=== PATIENT | female | born 1985 | race American Indian/Alaskan Native ===

== ENCOUNTER 2020-02-10 14:58 | Observation (INO) | payer SELFPAY ==
[2020-02-10] MEDS ORDERED: Sodium Chloride 0.9% 2.5 ML Syringe FLUSH PRN (15:08)
[2020-02-10] MEDS ORDERED: Acetaminophen 500 MG Tab PO ONE (15:08)
[2020-02-10] MEDS ORDERED: Morphine 4 MG/ML Syringe IVPUSH ONE (15:08)
[2020-02-10] MEDS ORDERED: Sodium Chloride 0.9% 10 ML Syringe FLUSH PRN (15:08)
[2020-02-10] MEDS ORDERED: Sodium Chloride 0.9% 1,000 ML IV ONE (15:08)
[2020-02-10] MEDS ORDERED: Ketorolac 15 MG/ML SDV IVPUSH ONE (15:08)
--- NOTE | 2020-02-10 16:05 | EDM.PDOC ---
ED HPI GENERAL MEDICAL PROBLEM - General Chief Complaint: GRINDER OPERATOR TOOL Problem Stated Complaint: OB PROBLEM Time Seen by Provider: 02/10/20 14:59 - History of Present Illness INITIAL COMMENTS - FREE TEXT/NARRATIVE: History of present illness: 34-year-old female brought by EMS from [facility] ER in [facility] for ongoing vaginal bleeding. On January 29 she started medication for a chemical termination of at 8 weeks. She took a second dose the next day. She reports some mild bleeding since then, however today she developed very heavy bleeding and abdominal cramping as well as passage of clots. She also felt nauseated. No fevers. Pain located in the lower abdomen and low back. Review of systems: As per history of present illness and below otherwise all systems reviewed and negative. Past medical history: As per history of present illness and as reviewed below otherwise noncontributory. Surgical history: As per history of present illness and as reviewed below otherwise noncontributory. D&C and Social history: No reported history of drug or alcohol abuse. Family history: As per history of present illness and as reviewed below otherwise noncontributory. Physical exam: GEN: no acute distress, well appearing HEENT: Atraumatic, normocephalic, mucous membranes moist, Neck: supple, nontender, trachea midline. Lungs: No respiratory distress. Heart: RRR Abdomen: Soft, nondistended, lower abdominal tenderness. : Pelvic exam performed with KAYLYN Gerard form designer, as difficult to visualize due to patient's level of pain, however also appears closed. There is active bleeding going on. No lesions seen. No products of conception visible. Back: nontender Extremities: Atraumatic. Neurovascularly intact. Neuro: Awake, alert, oriented. Neuro Exam nonfocal. Skin: warm, dry, no lesions Diagnostics: Ultrasound: Products of conception retained. Therapeutics: [] MDM: Possible retained POC/incomplete . Vital signs stable here. Patient reports still in pain. Pain medications given. We will also give IV fluids. Impression: [] Plan: We will check labs and ultrasound, and consult PLANT MAINTENANCE SUPERVISOR. Definitive disposition and diagnosis as appropriate pending reevaluation and review of above. Ultrasound does confirm that gestation is still present in the uterus. Cervical os appears closed. Discussed with GRINDER OPERATOR TOOL, who will possibly need D&C. Back Pain Score (Numeric/FACES): 7 - Related Data Allergies Allergy/AdvReac Type Severity Reaction Status Date / Time No Known Allergies Allergy Verified 02/10/20 15:13 Home Meds: Home Meds . [Unable to Verify Home Med List] 02/10/20 [History] Past Medical History - Past Health History Medical/Surgical History: Denies Medical/Surgical History - Infectious Disease History Infectious Disease History: Reports: None - Past Surgical History Female Surgical History: Reports: Section Social & Family History - Family History Family Medical History: Noncontributory - Tobacco Use Smoking Status *Q: Unknown Ever Smoked - Caffeine Use Caffeine Use: Reports: None - Recreational Drug Use Recreational Drug Use: No ED ROS GENERAL - Review of Systems Review Of Systems: See Below (See dictation) ED EXAM - Physical Exam Exam: See Below (See dictation) Course - Vital Signs Last Recorded V/S: Last Vital Signs Temp 97.8 F 02/10/20 15:14 Pulse 75 02/10/20 15:14 Resp 17 02/10/20 15:14 BP 140/86 02/10/20 15:14 Pulse Ox 97 02/10/20 15:14 - Orders/Labs/Meds Orders: Active Orders 24 hr Category Date Time Status Saline Lock Insert [OM.PC] Stat Oth 02/10/20 15:08 Ordered Medication Orders Lactated Ringer's (Ringers, Lactated) 1,000 mls @ 125 mls/hr IV ASDIRECTED NORY Oxycodone/Acetaminophen (Percocet 325-5 Mg) 2 tab PO Q4H PRN PRN Reason: Pain (severe 7-10) Labs: Laboratory Tests 02/10/20 02/10/20 02/10/20 Range/Units 15:20 15:20 15:20 WBC 12.34 H (4.0-11.0) K/uL RBC 3.84 L (4.30-5.90) M/uL Hgb 9.9 L (12.0-16.0) g/dL Hct 31.7 L (36.0-46.0) % MCV 82.6 (80.0-98.0) fL MCH 25.8 L (27.0-32.0) pg MCHC 31.2 (31.0-37.0) g/dL RDW Std Deviation 49.1 (28.0-62.0) fl RDW Coeff of Joe 16 H (11.0-15.0) % Plt Count 371 (150-400) K/uL MPV 8.90 (7.40-12.00) fL Neut % (Auto) 71.5 (48.0-80.0) % Lymph % (Auto) 21.8 (16.0-40.0) % [place] % (Auto) 5.3 (0.0-15.0) % Eos % (Auto) 1.2 (0.0-7.0) % Baso % (Auto) 0.2 (0.0-1.5) % Neut # (Auto) 8.8 H (1.4-5.7) K/uL Lymph # (Auto) 2.7 H (0.6-2.4) K/uL [place] # (Auto) 0.7 (0.0-0.8) K/uL Eos # (Auto) 0.2 (0.0-0.7) K/uL Baso # (Auto) 0.0 (0.0-0.1) K/uL Nucleated RBC % 0.0 /100WBC Nucleated RBCs # 0 K/uL Sodium 141 (136-145) mmol/L Potassium 3.5 (3.5-5.1) mmol/L Chloride 104 (98-107) mmol/L Carbon Dioxide 30.3 (21.0-32.0) mmol/L BUN 9 (7.0-18.0) mg/dL Creatinine 0.7 (0.6-1.0) mg/dL Est Cr Clr Drug Dosing 108.01 mL/min Estimated GFR (MDRD) > 60.0 ml/min Glucose 89 (74-106) mg/dL Calcium 8.3 L (8.5-10.1) mg/dL HCG, Quant 79454.0 mIU/mL Blood Type O POSITIVE Meds: Medications Generic Name Dose Route Start Last Admin Trade Name Freq PRN Reason Stop Dose Admin Lactated Ringer's 1,000 mls @ 125 mls/hr 02/10/20 18:30 Ringers, Lactated IV ASDIRECTED NORY Oxycodone/Acetaminophen 2 tab 02/10/20 18:31 Percocet 325-5 Mg PO Q4H PRN Pain (severe 7-10) Discontinued Medications Generic Name Dose Route Start Last Admin Trade Name Freq PRN Reason Stop Dose Admin Acetaminophen 1,000 mg 02/10/20 15:08 02/10/20 15:25 Tylenol Extra Strength PO 02/10/20 15:09 1,000 mg ONETIME ONE Administration Hydromorphone HCl 1 mg 02/10/20 17:39 02/10/20 17:50 Dilaudid IVPUSH 02/10/20 17:40 1 mg ONETIME ONE Administration Sodium Chloride 1,000 mls @ 999 mls/hr 02/10/20 15:08 02/10/20 15:22 Normal Saline IV 02/10/20 16:08 999 mls/hr .Bolus ONE Administration Ketorolac Tromethamine 15 mg 02/10/20 15:08 02/10/20 15:25 Toradol IVPUSH 02/10/20 15:09 15 mg ONETIME ONE Administration Morphine Sulfate 4 mg 02/10/20 15:08 02/10/20 15:24 Morphine IVPUSH 02/10/20 15:09 4 mg ONETIME ONE Administration Sodium Chloride 10 ml 02/10/20 15:08 02/10/20 15:25 Saline Flush FLUSH 10 ml ASDIRECTED PRN Administration Keep Vein Open Sodium Chloride 2.5 ml 02/10/20 15:08 02/10/20 15:25 Saline Flush FLUSH 2.5 ml ASDIRECTED PRN Administration Keep Vein Open - Re-Assessments/Exams Free Text/Narrative Re-Assessment/Exam: 02/10/20 17:31 Is feeling better. She reports her pain is somewhat improved. Pelvic exam was performed, which shows ongoing bleeding. Ultrasound complete, which shows retained products of conception. Will discuss with GRINDER OPERATOR TOOL. 02/10/20 18:05 Dr. Doe at bedside. He attempted to evaluate cervix for products, however patient was unable to tolerate. Therefore he will take the patient to the OR in the morning for D&E as bleeding seems to have improved at this point. He would like the patient to stay in observation. 02/10/20 18:48 Patient requested to speak to us. She now reports that her cousin who was initially watching her children is not able to watch her children tonight. Therefore she has no one to watch her kids tonight. She is requesting to leave. She was also concerned that she will not have a ride tomorrow to bring her home after the surgery. Did call Dr Doe to if that D&E could be performed tonight as the patient may not have a ride to get safely home tomorrow. However he is unable to perform the procedure tonight. This was discussed with the patient. Patient requested to sign out AMA as she reports she must leave tonight to care for her children as she has no one to watch over them tonight. She does agree to return tomorrow for the surgery and to remain n.p.o. after midnight. She has been able to arrange a ride back here and then home tomorrow for after the surgery as well. Dr. Doe was updated that the patient is signing out AMA and will return tomorrow for surgery. Departure - Departure Time of Disposition: 18:07 Disposition: Against Medical Advice 07 Clinical Impression: Retained products of conception following , Incomplete - Discharge Information Sepsis Event Note (ED) - Evaluation Sepsis Screening Result: No Definite Risk - Focused Exam Vital Signs: Vital Signs Temp Pulse Resp BP Pulse Ox 02/10/20 15:14 97.8 F 75 17 140/86 97 - My Orders Last 24 Hours: My Active Orders 02/10/20 15:08 Saline Lock Insert [OM.PC] Stat - Assessment/Plan Last 24 Hours: My Active Orders 02/10/20 15:08 Saline Lock Insert [OM.PC] Stat
--- NOTE | 2020-02-10 16:05 | US ---
Pelvic ultrasound: Multiple real-time images were obtained transabdominally and transvaginally. Comparison: No previous studies available. Gestational sac appears to be present. Small amount of debris is noted within this gestational sac. Small subchorionic hemorrhage is seen. Ovaries appear within normal limits. No free fluid is seen. Impression: 1. Findings compatible with products of conception as noted above. Diagnostic code #3 Study was dictated in MDT
[2020-02-10 16:08] LABS: BLOOD UREA NITROGEN,BUN 9 mg/dL (7.0-18.0); CARBON DIOXIDE,CO2 30.3 mmol/L (21.0-32.0); CHLORIDE,CL 104 mmol/L (98-107); GLUCOSE RANDOM 89 mg/dL (74-106); POTASSIUM,K 3.5 mmol/L (3.5-5.1); SODIUM,NA 141 mmol/L (136-145)
[2020-02-10] MEDS ORDERED: HYDROmorphone 1 MG/ML Syringe IVPUSH ONE (17:39)
[2020-02-10] MEDS ORDERED: Lactated Ringers 1,000 ML IV SCH (18:30)
[2020-02-10] MEDS ORDERED: Acetaminophen/oxyCODONE 325-5 MG Tab PO PRN (18:31)
[2020-02-10] MEDS ORDERED: fentaNYL 100 MCG/2 ML SDV ONE ×2 (20:08→21:14)
[2020-02-10] MEDS ORDERED: Midazolam 1 MG/ML 2 ML SDV ONE (20:08)
[2020-02-10] MEDS ORDERED: Ondansetron 4 MG/2 ML SDV ONE (21:03)
[2020-02-10] MEDS ORDERED: Ketorolac 30 MG/ML SDV ONE (21:17)
--- NOTE | 2020-02-10 21:24 | PCM.OPNOTE ---
- General Post-Op/Procedure Note Date of Surgery/Procedure: 02/10/20 Operative Procedure(s): D&E Post-Op Diagnosis: Same Anesthesia Technique: Spinal Primary Surgeon: Joe Doe EBL in mLs: 100 Complications: None Condition: Stable
--- NOTE | 2020-02-10 21:24 | PCM.DCSUM1 ---
Discharge Summary - Hospital Course Diagnosis: Stroke: No - Discharge Data Discharge Date: 02/10/20 Discharge Disposition: Home, Self-Care 01 Condition: Stable - Referral to Home Health Primary Care Physician: PCP None - Patient Summary/Data Operative Procedure(s) Performed: D&E - Patient Instructions Diet: Usual Diet as Tolerated Activity: As Tolerated Driving: Do Not Drive Showering/Bathing: May Shower - Discharge Plan Home Medications: Home Meds . [Unable to Verify Home Med List] 02/10/20 [History] Forms: ED Department Discharge Referrals: PCP,None [Primary Care Provider] - - Discharge Summary/Plan Comment DC Time >30 min.: Yes - General Info Date of Service: 02/10/20 Functional Status: Reports: Pain Controlled - Review of Systems General: Reports: No Symptoms HEENT: Reports: No Symptoms Pulmonary: Reports: No Symptoms Cardiovascular: Reports: No Symptoms Gastrointestinal: Reports: No Symptoms Genitourinary: Reports: No Symptoms Musculoskeletal: Reports: No Symptoms Skin: Reports: No Symptoms Neurological: Reports: No Symptoms Psychiatric: Reports: No Symptoms - Patient Data Vitals - Most Recent: Last Vital Signs Temp 36.8 C 02/10/20 20:00 Pulse 78 02/10/20 20:00 Resp 14 02/10/20 20:00 BP 155/96 H 02/10/20 20:00 Pulse Ox 98 02/10/20 20:00 Weight - Most Recent: 145.15 kg Lab Results - Last 24 hrs: Laboratory Results - last 24 hr 02/10/20 02/10/20 02/10/20 Range/Units 15:20 15:20 15:20 WBC 12.34 H (4.0-11.0) K/uL RBC 3.84 L (4.30-5.90) M/uL Hgb 9.9 L (12.0-16.0) g/dL Hct 31.7 L (36.0-46.0) % MCV 82.6 (80.0-98.0) fL MCH 25.8 L (27.0-32.0) pg MCHC 31.2 (31.0-37.0) g/dL RDW Std Deviation 49.1 (28.0-62.0) fl RDW Coeff of Joe 16 H (11.0-15.0) % Plt Count 371 (150-400) K/uL MPV 8.90 (7.40-12.00) fL Neut % (Auto) 71.5 (48.0-80.0) % Lymph % (Auto) 21.8 (16.0-40.0) % [place] % (Auto) 5.3 (0.0-15.0) % Eos % (Auto) 1.2 (0.0-7.0) % Baso % (Auto) 0.2 (0.0-1.5) % Neut # (Auto) 8.8 H (1.4-5.7) K/uL Lymph # (Auto) 2.7 H (0.6-2.4) K/uL [place] # (Auto) 0.7 (0.0-0.8) K/uL Eos # (Auto) 0.2 (0.0-0.7) K/uL Baso # (Auto) 0.0 (0.0-0.1) K/uL Nucleated RBC % 0.0 /100WBC Nucleated RBCs # 0 K/uL Sodium 141 (136-145) mmol/L Potassium 3.5 (3.5-5.1) mmol/L Chloride 104 (98-107) mmol/L Carbon Dioxide 30.3 (21.0-32.0) mmol/L BUN 9 (7.0-18.0) mg/dL Creatinine 0.7 (0.6-1.0) mg/dL Est Cr Clr Drug Dosing 108.01 mL/min Estimated GFR (MDRD) > 60.0 ml/min Glucose 89 (74-106) mg/dL Calcium 8.3 L (8.5-10.1) mg/dL HCG, Quant 24005.0 mIU/mL SARS-CoV-2 RNA (RT-PCR) (NEGATIVE) Blood Type O POSITIVE 02/10/20 Range/Units 19:10 WBC (4.0-11.0) K/uL RBC (4.30-5.90) M/uL Hgb (12.0-16.0) g/dL Hct (36.0-46.0) % MCV (80.0-98.0) fL MCH (27.0-32.0) pg MCHC (31.0-37.0) g/dL RDW Std Deviation (28.0-62.0) fl RDW Coeff of Joe (11.0-15.0) % Plt Count (150-400) K/uL MPV (7.40-12.00) fL Neut % (Auto) (48.0-80.0) % Lymph % (Auto) (16.0-40.0) % [place] % (Auto) (0.0-15.0) % Eos % (Auto) (0.0-7.0) % Baso % (Auto) (0.0-1.5) % Neut # (Auto) (1.4-5.7) K/uL Lymph # (Auto) (0.6-2.4) K/uL [place] # (Auto) (0.0-0.8) K/uL Eos # (Auto) (0.0-0.7) K/uL Baso # (Auto) (0.0-0.1) K/uL Nucleated RBC % /100WBC Nucleated RBCs # K/uL Sodium (136-145) mmol/L Potassium (3.5-5.1) mmol/L Chloride (98-107) mmol/L Carbon Dioxide (21.0-32.0) mmol/L BUN (7.0-18.0) mg/dL Creatinine (0.6-1.0) mg/dL Est Cr Clr Drug Dosing mL/min Estimated GFR (MDRD) ml/min Glucose (74-106) mg/dL Calcium (8.5-10.1) mg/dL HCG, Quant mIU/mL SARS-CoV-2 RNA (RT-PCR) NEGATIVE (NEGATIVE) Blood Type Med Orders - Current: Current Medications Lactated Ringer's (Ringers, Lactated) 1,000 mls @ 125 mls/hr IV ASDIRECTED NORY Oxycodone/Acetaminophen (Percocet 325-5 Mg) 2 tab PO Q4H PRN PRN Reason: Pain (severe 7-10) Discontinued Medications Acetaminophen (Tylenol Extra Strength) 1,000 mg PO ONETIME ONE Stop: 02/10/20 15:09 Last Admin: 02/10/20 15:25 Dose: 1,000 mg Fentanyl (Sublimaze) Confirm Administered Dose 100 mcg .ROUTE .STK-MED ONE Stop: 02/10/20 20:09 Fentanyl (Sublimaze) Confirm Administered Dose 100 mcg .ROUTE .STK-MED ONE Stop: 02/10/20 21:15 Hydromorphone HCl (Dilaudid) 1 mg IVPUSH ONETIME ONE Stop: 02/10/20 17:40 Last Admin: 02/10/20 17:50 Dose: 1 mg Sodium Chloride (Normal Saline) 1,000 mls @ 999 mls/hr IV .Bolus ONE Stop: 02/10/20 16:08 Last Admin: 02/10/20 15:22 Dose: 999 mls/hr Ketorolac Tromethamine (Toradol) 15 mg IVPUSH ONETIME ONE Stop: 02/10/20 15:09 Last Admin: 02/10/20 15:25 Dose: 15 mg Ketorolac Tromethamine (Toradol) Confirm Administered Dose 30 mg .ROUTE .STK- MED ONE Stop: 02/10/20 21:18 Midazolam HCl (Versed 1 Mg/Ml) Confirm Administered Dose 4 mg .ROUTE .STK-MED ONE Stop: 02/10/20 20:09 Morphine Sulfate (Morphine) 4 mg IVPUSH ONETIME ONE Stop: 02/10/20 15:09 Last Admin: 02/10/20 15:24 Dose: 4 mg Ondansetron HCl (Zofran) Confirm Administered Dose 4 mg .ROUTE .STK-MED ONE Stop: 02/10/20 21:04 Sodium Chloride (Saline Flush) 10 ml FLUSH ASDIRECTED PRN PRN Reason: Keep Vein Open Last Admin: 02/10/20 15:25 Dose: 10 ml Sodium Chloride (Saline Flush) 2.5 ml FLUSH ASDIRECTED PRN PRN Reason: Keep Vein Open Last Admin: 02/10/20 15:25 Dose: 2.5 ml - Exam General: Reports: Alert, Oriented HEENT: Reports: Pupils Equal, Pupils Reactive, EOMI, Mucous Membr. Moist/[place] Neck: Reports: Supple Lungs: Reports: Clear to Auscultation, Normal Respiratory Effort Cardiovascular: Reports: Regular Rate, Regular Rhythm GI/Abdominal Exam: Normal Bowel Sounds, Soft, Non-Tender, No Organomegaly, No Distention, No Abnormal Bruit, No Mass, Pelvis Stable (Female) Exam: Normal External Exam, Normal Speculum Exam, Normal Bimanual Exam Rectal (Female) Exam: Normal Exam, Normal Rectal Tone Back Exam: Reports: Normal Inspection, Full Range of Motion Extremities: Normal Inspection, Normal Range of Motion, Non-Tender, No Pedal Edema, Normal Capillary Refill Skin: Reports: Warm, Dry, Intact Wound/Incisions: Reports: Healing Well Neurological: Reports: No New Focal Deficit Psy/Mental Status: Reports: Alert, Normal Affect, Normal Mood
--- NOTE | 2020-02-10 21:50 | PCM.POSTAN ---
POST ANESTHESIA ASSESSMENT - MENTAL STATUS Mental Status: Alert, Oriented - VITAL SIGNS Vital Signs: Last Vital Signs Temp 36.2 C 02/10/20 21:21 Pulse 66 02/10/20 21:36 Resp 13 02/10/20 21:36 BP 155/92 H 02/10/20 21:36 Pulse Ox 100 02/10/20 21:36 - RESPIRATORY Respiratory Status: Respiratory Rate WNL, Airway Patent, O2 Saturation Stable - CARDIOVASCULAR CV Status: Pulse Rate WNL, Blood Pressure Stable - GASTROINTESTINAL GI Status: No Symptoms - PAIN Pain Score: 0 - POST OP HYDRATION Hydration Status: Adequate & Stable - OBSERVATIONS Free Text/Narrative:: Patient doing well. No anesthesia concerns or apparent complications.
--- NOTE | 2020-02-10 21:56 | PCM.PREANE ---
Preanesthetic Assessment - Procedure Proposed Procedure: Suction D & C - Anesthesia/Transfusion/Family Hx Anesthesia History: Prior Anesthesia Without Reaction - Review of Systems General: No Symptoms Pulmonary: No Symptoms Cardiovascular: No Symptoms Gastrointestinal: No Symptoms Neurological: No Symptoms Other: Reports: None - Physical Assessment NPO Status Date: 02/10/20 NPO Status Time: 19:00 Vital Signs: Last Vital Signs Temp 36.2 C 02/10/20 21:21 Pulse 66 02/10/20 21:36 Resp 13 02/10/20 21:36 BP 155/92 H 02/10/20 21:36 Pulse Ox 100 02/10/20 21:36 Height: 5 ft 6 in Weight: 145.15 kg ASA Class: 3E Mental Status: Alert & Oriented x3 Airway Class: Mallampati = 3 Dentition: Reports: Normal Dentition Thyro-Mental Finger Breadths: 3 Mouth Opening Finger Breadths: 3 ROM/Head Extension: Full Lungs: Clear to Auscultation, Normal Respiratory Effort Cardiovascular: Regular Rate, Regular Rhythm - Lab Values: Laboratory Last Values WBC 12.34 K/uL (4.0-11.0) H 02/10/20 15:20 RBC 3.84 M/uL (4.30-5.90) L 02/10/20 15:20 Hgb 9.9 g/dL (12.0-16.0) L 02/10/20 15:20 Hct 31.7 % (36.0-46.0) L 02/10/20 15:20 MCV 82.6 fL (80.0-98.0) 02/10/20 15:20 MCH 25.8 pg (27.0-32.0) L 02/10/20 15:20 MCHC 31.2 g/dL (31.0-37.0) 02/10/20 15:20 RDW Std Deviation 49.1 fl (28.0-62.0) 02/10/20 15:20 RDW Coeff of Joe 16 % (11.0-15.0) H 02/10/20 15:20 Plt Count 371 K/uL (150-400) 02/10/20 15:20 MPV 8.90 fL (7.40-12.00) 02/10/20 15:20 Neut % (Auto) 71.5 % (48.0-80.0) 02/10/20 15:20 Lymph % (Auto) 21.8 % (16.0-40.0) 02/10/20 15:20 [place] % (Auto) 5.3 % (0.0-15.0) 02/10/20 15:20 Eos % (Auto) 1.2 % (0.0-7.0) 02/10/20 15:20 Baso % (Auto) 0.2 % (0.0-1.5) 02/10/20 15:20 Neut # (Auto) 8.8 K/uL (1.4-5.7) H 02/10/20 15:20 Lymph # (Auto) 2.7 K/uL (0.6-2.4) H 02/10/20 15:20 [place] # (Auto) 0.7 K/uL (0.0-0.8) 02/10/20 15:20 Eos # (Auto) 0.2 K/uL (0.0-0.7) 02/10/20 15:20 Baso # (Auto) 0.0 K/uL (0.0-0.1) 02/10/20 15:20 Nucleated RBC % 0.0 /100WBC 02/10/20 15:20 Nucleated RBCs # 0 K/uL 02/10/20 15:20 Sodium 141 mmol/L (136-145) 02/10/20 15:20 Potassium 3.5 mmol/L (3.5-5.1) 02/10/20 15:20 Chloride 104 mmol/L (98-107) 02/10/20 15:20 Carbon Dioxide 30.3 mmol/L (21.0-32.0) 02/10/20 15:20 BUN 9 mg/dL (7.0-18.0) 02/10/20 15:20 Creatinine 0.7 mg/dL (0.6-1.0) 02/10/20 15:20 Est Cr Clr Drug Dosing 108.01 mL/min 02/10/20 15:20 Estimated GFR (MDRD) > 60.0 ml/min 02/10/20 15:20 Glucose 89 mg/dL (74-106) 02/10/20 15:20 Calcium 8.3 mg/dL (8.5-10.1) L 02/10/20 15:20 HCG, Quant 19935.0 mIU/mL 02/10/20 15:20 SARS-CoV-2 RNA (RT-PCR) NEGATIVE (NEGATIVE) 02/10/20 19:10 Blood Type O POSITIVE 02/10/20 15:20 - Allergies Allergies/Adverse Reactions: Allergies Allergy/AdvReac Type Severity Reaction Status Date / Time No Known Allergies Allergy Verified 02/10/20 15:13 - Blood Blood Available: No - Anesthesia Plan Free Text/Narrative:: Plan Spinal Anesthesia with minimal to light sedation. GETA RSI as needed. - Acknowledgements Anesthesia Type Planned: Spinal Pt an Appropriate Candidate for the Planned Anesthesia: Yes Alternatives and Risks of Anesthesia Discussed w Pt/Guardian: Yes Pt/Guardian Understands and Agrees with Anesthesia Plan: Yes PreAnesthesia Questionnaire HEENT History: Reports: None Cardiovascular History: Reports: None Respiratory History: Reports: None Gastrointestinal History: Reports: GERD Genitourinary History: Reports: None DEAN OF FACULTY History: Reports: : 7 Para: 6 LMP (Approximate): Other (See Below) Other OB/BYN History: History of chemical . Approximately 8 weeks with missed currently. Musculoskeletal History: Reports: None Neurological History: Reports: None Psychiatric History: Reports: None Endocrine/Metabolic History: Reports: Obesity/BMI 30+ Other Endocrine/Metabolic History: BMI 51.6 Hematologic History: Reports: None Immunologic History: Reports: None Oncologic (Cancer) History: Reports: None Dermatologic History: Reports: None - Infectious Disease History Infectious Disease History: Reports: None - Past Surgical History Female Surgical History: Reports: Section Other Female Surgeries/Procedures: X 6. - Past Imaging History Past Imaging History: Reports: None - SUBSTANCE USE Smoking Status *Q: Current Some Day Smoker Recreational Drug Use History: No - HOME MEDS Home Medications: Home Meds . [Unable to Verify Home Med List] 02/10/20 [History] - CURRENT (IN HOUSE) MEDS Current Meds: Current Medications Lactated Ringer's (Ringers, Lactated) 1,000 mls @ 125 mls/hr IV ASDIRECTED NORY Oxycodone/Acetaminophen (Percocet 325-5 Mg) 2 tab PO Q4H PRN PRN Reason: Pain (severe 7-10) Discontinued Medications Acetaminophen (Tylenol Extra Strength) 1,000 mg PO ONETIME ONE Stop: 02/10/20 15:09 Last Admin: 02/10/20 15:25 Dose: 1,000 mg Fentanyl (Sublimaze) Confirm Administered Dose 100 mcg .ROUTE .STK-MED ONE Stop: 02/10/20 20:09 Fentanyl (Sublimaze) Confirm Administered Dose 100 mcg .ROUTE .STK-MED ONE Stop: 02/10/20 21:15 Hydromorphone HCl (Dilaudid) 1 mg IVPUSH ONETIME ONE Stop: 02/10/20 17:40 Last Admin: 02/10/20 17:50 Dose: 1 mg Sodium Chloride (Normal Saline) 1,000 mls @ 999 mls/hr IV .Bolus ONE Stop: 02/10/20 16:08 Last Admin: 02/10/20 15:22 Dose: 999 mls/hr Ketorolac Tromethamine (Toradol) 15 mg IVPUSH ONETIME ONE Stop: 02/10/20 15:09 Last Admin: 02/10/20 15:25 Dose: 15 mg Ketorolac Tromethamine (Toradol) Confirm Administered Dose 30 mg .ROUTE .STK- MED ONE Stop: 02/10/20 21:18 Midazolam HCl (Versed 1 Mg/Ml) Confirm Administered Dose 4 mg .ROUTE .STK-MED ONE Stop: 02/10/20 20:09 Morphine Sulfate (Morphine) 4 mg IVPUSH ONETIME ONE Stop: 02/10/20 15:09 Last Admin: 02/10/20 15:24 Dose: 4 mg Ondansetron HCl (Zofran) Confirm Administered Dose 4 mg .ROUTE .STK-MED ONE Stop: 02/10/20 21:04 Sodium Chloride (Saline Flush) 10 ml FLUSH ASDIRECTED PRN PRN Reason: Keep Vein Open Last Admin: 02/10/20 15:25 Dose: 10 ml Sodium Chloride (Saline Flush) 2.5 ml FLUSH ASDIRECTED PRN PRN Reason: Keep Vein Open Last Admin: 02/10/20 15:25 Dose: 2.5 ml
--- NOTE | 2020-02-10 22:04 | PCM48HPAN ---
Post Anesthesia Note - EVALUATION WITHIN 48HRS OF ANESTHETIC Vital Signs in Normal Range: Yes Patient Participated in Evaluation: Yes Respiratory Function Stable: Yes Airway Patent: Yes Cardiovascular Function Stable: Yes Hydration Status Stable: Yes Pain Control Satisfactory: Yes Nausea and Vomiting Control Satisfactory: Yes Mental Status Recovered: Yes Vital Signs: Last Vital Signs Temp 36.2 C 02/10/20 21:21 Pulse 66 02/10/20 21:36 Resp 13 02/10/20 21:36 BP 155/92 H 02/10/20 21:36 Pulse Ox 100 02/10/20 21:36 - COMMENTS/OBSERVATIONS Free Text/Narrative:: No anesthesia concerns.
--- NOTE | 2020-02-11 12:49 | OR ---
SURGEON: Joe Doe MD DATE OF PROCEDURE: 02/10/2020 PREOPERATIVE DIAGNOSIS: Incomplete . POSTOPERATIVE DIAGNOSIS: Incomplete . OPERATIONS PERFORMED: Dilatation and evacuation. PRIMARY SURGEON: Joe Doe MD. SHOP STEWARD: OR tech. ANESTHESIA: Spinal, Ms. Jadyn Tracey and Dr. Hill ESTIMATED BLOOD LOSS: 100 mL. COMPLICATIONS: None. FINDINGS: Products of conception. INDICATIONS FOR SURGERY: This patient is to have presented to the ER with incomplete and bleeding. PROCEDURE IN DETAIL: The patient was brought to the OR, properly identified. After adequate level of spinal anesthesia with the patient prepped and draped in sterile fashion as usual, straight catheter was used to empty the bladder. Speculum placed in the vagina and the single-tooth tenaculum applied to the cervix. The cervix sequentially dilated to accommodate a #8 cannula. The cannula was placed in the endometrial cavity and the endometrial cavity was suction evacuated completely from all products and products of conception. After that, small curette was used to check and make sure that the uterus was empty. Once we ascertained that the uterus was empty and all products of conception was removed, bleeding was slowed down, the procedure was ended. The instrument and hardware were retrieved from the vagina. The instrument and sponge count was correct. The patient tolerated the procedure well, went to recovery room in stable general condition. BIN / SHELBY /[id number]
== END 2020-02-11 09:45 | disposition home or self-care (01) ==
LOC: MW.ED 14:58 → MW.MS 18:03 → UNDODISOB 18:54
PROVIDERS: ADMIT Obstetrics & Gynecology; ATTEND Obstetrics & Gynecology
DX: O03.4 Incomplete spontaneous abortion without complication (principal); K21.9 Gastro-esophageal reflux disease without esophagitis; F17.200 Nicotine dependence, unspecified, uncomplicated; E66.9 Obesity, unspecified; Z68.43 Body mass index [BMI] 50.0-59.9, adult
CPT/HCPCS: 36415; 59812; 76830; 80048; 84702; 85025; 86900; 86901; 87635; 96361; 96374; 96375; 99285; A9270; J1170; J1885; J2250; J2270; J2405; J3010; J7030; 01965; G0378; U0002

== ENCOUNTER 2020-02-12 14:29 | Emergency (ER) | payer SELFPAY ==
[2020-02-12] MEDS ORDERED: Sodium Chloride 0.9% 10 ML Syringe FLUSH PRN (14:54)
[2020-02-12] MEDS ORDERED: Sodium Chloride 0.9% 1,000 ML IV ONE (14:54)
[2020-02-12] MEDS ORDERED: Acetaminophen 500 MG Tab PO ONE (14:54)
[2020-02-12] MEDS ORDERED: Ketorolac 15 MG/ML SDV IVPUSH ONE (14:54)
[2020-02-12] MEDS ORDERED: Sodium Chloride 0.9% 2.5 ML Syringe FLUSH PRN (14:54)
[2020-02-12] MEDS ORDERED: Morphine 4 MG/ML Syringe IVPUSH ONE (14:54)
--- NOTE | 2020-02-12 15:20 | EDM.PDOC ---
ED HPI GENERAL MEDICAL PROBLEM - General Chief Complaint: LIVESTOCK PRODUCER Problem Stated Complaint: SEVERE BLEEDING Time Seen by Provider: 02/12/20 14:31 Source of Information: Reports: Patient History Limitations: Reports: No Limitations - History of Present Illness INITIAL COMMENTS - FREE TEXT/NARRATIVE: History of present illness: 34-year-old female presenting with left lower abdominal/pelvic pain over the last few hours. She had a D and E 2 days ago at this facility, she was admitted from the emergency department and seen by myself. Approximately 2 weeks ago she had a chemical termination of at 8 weeks. When she was seen here 2 days ago she had retained products of conception and therefore was admitted for D&C/D&E per LIVESTOCK PRODUCER who came to evaluate her in the emergency department. She had that procedure 2 days ago and had been doing well up until this afternoon when she was walking out to her car and suddenly started to have a lot of cramping and have a large amount of blood passage from the vagina. She reports large golf ball to fist size clots passing and having ongoing cramping pain. She had an appointment with the OB/ NATUROPATHIC ONCOLOGY PROVIDER at 3 PM today, however she felt that the pain was too severe and she could not wait, therefore she came here. Review of systems: As per history of present illness and below otherwise all systems reviewed and negative. Past medical history: As per history of present illness and as reviewed below otherwise noncontributory. Surgical history: As per history of present illness and as reviewed below otherwise noncontributory. Social history: No reported history of drug or alcohol abuse. no tobacco Family history: As per history of present illness and as reviewed below otherwise noncontributory. Physical exam: GEN: no acute distress, well appearing HEENT: Atraumatic, normocephalic, mucous membranes moist, Neck: supple, nontender, trachea midline. Lungs: No respiratory distress. Heart: RRR Abdomen: Soft, nondistended, left area inguinal tenderness, suprapubic tenderness, no rebound or guarding. Back: nontender Extremities: Atraumatic. Neurovascularly intact. Neuro: Awake, alert, oriented. Neuro Exam nonfocal. Skin: warm, dry, no lesions Diagnostics: Ultrasound, labs Therapeutics: [] MDM: Impression: [] Plan: [] Definitive disposition and diagnosis as appropriate pending reevaluation and review of above. Left lower abdominal Pain Score (Numeric/FACES): 8 - Related Data Allergies Allergy/AdvReac Type Severity Reaction Status Date / Time No Known Allergies Allergy Verified 02/12/20 14:41 Home Meds: Home Meds miSOPROStoL [Cytotec] 200 mcg PO Q8H #6 tablet 02/12/20 [Rx] Past Medical History - Past Health History Medical/Surgical History: Denies Medical/Surgical History HEENT History: Reports: None Cardiovascular History: Reports: None Respiratory History: Reports: None Gastrointestinal History: Reports: GERD Genitourinary History: Reports: None LIVESTOCK PRODUCER History: Reports: Other L[employer]STOCK PRODUCER History: History of chemical . Approximately 8 weeks with missed currently. Musculoskeletal History: Reports: None Neurological History: Reports: None Psychiatric History: Reports: None Endocrine/Metabolic History: Reports: Obesity/BMI 30+ Other Endocrine/Metabolic History: BMI 51.6 Hematologic History: Reports: None Immunologic History: Reports: None Oncologic (Cancer) History: Reports: None Dermatologic History: Reports: None - Infectious Disease History Infectious Disease History: Reports: None - Past Surgical History Female Surgical History: Reports: Section, D&C Other Female Surgeries/Procedures: X 6. - Past Imaging History Past Imaging History: Reports: None Social & Family History - Family History Family Medical History: Noncontributory - Tobacco Use Smoking Status *Q: Unknown Ever Smoked - Caffeine Use Caffeine Use: Reports: None - Recreational Drug Use Recreational Drug Use: No ED ROS GENERAL - Review of Systems Review Of Systems: See Below (See dictation) ED EXAM, GI/ABD - Physical Exam Exam: See Below (See dictation) Course - Vital Signs Text/Narrative:: Abdominal cramping and vaginal bleeding, ongoing/restarted today after D&C or 2 days ago retained products of conception. Ultrasound today again shows retained products of conception which was discussed with LIVESTOCK PRODUCER, who recommends Cytotec and he will see the patient in the office. Appointment was made for tomorrow morning at 10 AM. First dose Cytotec was given here. Patient is feeling much better on reassessment. She does report significant emotional stress and therefore I will give her options in the community for assistance and counseling. Last Recorded V/S: Last Vital Signs Temp 97.5 F 02/12/20 14:42 Pulse 81 02/12/20 15:27 Resp 18 02/12/20 15:27 BP 153/57 H 02/12/20 15:27 Pulse Ox 99 02/12/20 15:27 - Orders/Labs/Meds Orders: Active Orders 24 hr Category Date Time Status Sodium Chloride 0.9% [Saline Flush] Med 02/12/20 14:54 Active 10 ml FLUSH ASDIRECTED PRN Sodium Chloride 0.9% [Saline Flush] Med 02/12/20 14:54 Active 2.5 ml FLUSH ASDIRECTED PRN miSOPROStoL [Cytotec] Med 02/12/20 15:45 Active 200 mcg PO BID Saline Lock Insert [OM.PC] Stat Oth 02/12/20 14:54 Ordered Medication Orders Misoprostol (Cytotec) 200 mcg PO BID NORY Sodium Chloride (Saline Flush) 10 ml FLUSH ASDIRECTED PRN PRN Reason: Keep Vein Open Last Admin: 02/12/20 15:14 Dose: 10 ml Sodium Chloride (Saline Flush) 2.5 ml FLUSH ASDIRECTED PRN PRN Reason: Keep Vein Open Last Admin: 02/12/20 15:14 Dose: 2.5 ml Labs: Laboratory Tests 02/12/20 02/12/20 02/12/20 Range/Units 15:12 15:12 15:12 WBC 13.48 H (4.0-11.0) K/uL RBC 3.80 L (4.30-5.90) M/uL Hgb 9.7 L (12.0-16.0) g/dL Hct 30.9 L (36.0-46.0) % MCV 81.3 (80.0-98.0) fL MCH 25.5 L (27.0-32.0) pg MCHC 31.4 (31.0-37.0) g/dL RDW Std Deviation 48.2 (28.0-62.0) fl RDW Coeff of Joe 16 H (11.0-15.0) % Plt Count 376 (150-400) K/uL MPV 8.70 (7.40-12.00) fL Neut % (Auto) 73.1 (48.0-80.0) % Lymph % (Auto) 20.1 (16.0-40.0) % Blount % (Auto) 5.9 (0.0-15.0) % Eos % (Auto) 0.8 (0.0-7.0) % Baso % (Auto) 0.1 (0.0-1.5) % Neut # (Auto) 9.8 H (1.4-5.7) K/uL Lymph # (Auto) 2.7 H (0.6-2.4) K/uL Blount # (Auto) 0.8 (0.0-0.8) K/uL Eos # (Auto) 0.1 (0.0-0.7) K/uL Baso # (Auto) 0.0 (0.0-0.1) K/uL Nucleated RBC % 0.0 /100WBC Nucleated RBCs # 0 K/uL Sodium 139 (136-145) mmol/L Potassium 3.5 (3.5-5.1) mmol/L Chloride 102 (98-107) mmol/L Carbon Dioxide 26.6 (21.0-32.0) mmol/L BUN 5 L (7.0-18.0) mg/dL Creatinine 0.6 (0.6-1.0) mg/dL Est Cr Clr Drug Dosing 121.13 mL/min Estimated GFR (MDRD) > 60.0 ml/min Glucose 83 (74-106) mg/dL Calcium 8.4 L (8.5-10.1) mg/dL HCG, Quant 12636.0 mIU/mL Meds: Medications Generic Name Dose Route Start Last Admin Trade Name Freq PRN Reason Stop Dose Admin Misoprostol 200 mcg 02/12/20 15:45 Cytotec PO BID NORY Sodium Chloride 10 ml 02/12/20 14:54 02/12/20 15:14 Saline Flush FLUSH 10 ml ASDIRECTED PRN Administration Keep Vein Open Sodium Chloride 2.5 ml 02/12/20 14:54 02/12/20 15:14 Saline Flush FLUSH 2.5 ml ASDIRECTED PRN Administration Keep Vein Open Discontinued Medications Generic Name Dose Route Start Last Admin Trade Name Freq PRN Reason Stop Dose Admin Acetaminophen 1,000 mg 02/12/20 14:54 02/12/20 15:14 Tylenol Extra Strength PO 02/12/20 14:55 1,000 mg ONETIME ONE Administration Sodium Chloride 1,000 mls @ 999 mls/hr 02/12/20 14:54 02/12/20 15:14 Normal Saline IV 02/12/20 15:54 999 mls/hr .Bolus ONE Administration Ketorolac Tromethamine 15 mg 02/12/20 14:54 02/12/20 15:14 Toradol IVPUSH 02/12/20 14:55 15 mg ONETIME ONE Administration Morphine Sulfate 4 mg 02/12/20 14:54 02/12/20 15:14 Morphine IVPUSH 02/12/20 14:55 4 mg ONETIME ONE Administration - Re-Assessments/Exams Free Text/Narrative Re-Assessment/Exam: 02/12/20 15:48 Ultrasound shows echogenic material in the endometrial cavity with Doppler blood flow, concerning for possible retained products of conception. These ultrasound findings as well as patient's re-presentation for pain, cramping and clot passage/bleeding were discussed with Dr. Doe in regards to possible repeat surgical intervention. He reports no surgical intervention needed at this time, products will likely pass on their own but he recommended Cytotec 200 mcg every 8 hours for 48 hours. He reports she can be safely discharged home. He will see the patient in the office as soon as possible. Nursing called the office and made an appointment for tomorrow morning at 10 AM 02/12/20 16:16 I had a long discussion with the patient in regards to the recommendations made by [employer]STOCK PRODUCER. She agrees with this plan. She reported that she was very overwhelmed, caring for her many children primarily all by herself including that she was not able to take any time off after having a D&C done and felt that she possibly overdid it yesterday caring for them. She does not have much help around the home. Her former spouse was a methamphetamine abuser who she asked to leave to protect her children and therefore she has really not had any help with them and she feels overwhelmed that he is not there and that the children are sad and misses him. We discussed my recommendation for counseling/therapy and I will give her resources for this. Discussed plan for follow-up appointment tomorrow with LIVESTOCK PRODUCER. And plan for Cytotec every 8 hours as recommended by LIVESTOCK PRODUCER. She voiced understanding and agrees with this plan. 02/12/20 17:02 Departure - Departure Time of Disposition: 16:59 Disposition: Home, Self-Care 01 Condition: Good Clinical Impression: Incomplete , Retained products of conception following - Discharge Information Prescriptions: miSOPROStoL [Cytotec] 200 mcg PO Q8H #6 tablet Instructions: Incomplete Miscarriage Referrals: Joe Doe MD [Physician] - 02/13/20 10:00 am (Please arrive at the office at 9:30 AM to check in) [facility] [Outside] - 2 Days Forms: ED Department Discharge Additional Instructions: 1) take the misoprostol every 8 hours for 48 hours. 2) follow-up with LIVESTOCK PRODUCER tomorrow, please be in the office at 9:30 AM 3) take ibuprofen 600 to 800 mg every 8 hours on a set schedule for the next 2 to 3 days. 4) if your pain is still severe, you may also take Tylenol 500 mg to 1000 mg every 8 hours, try to keep this 4 hours apart from the ibuprofen dosing to ensure steady pain relief. 5) attached our resources for you for emotional assistance/counseling to assist you and your children 6) please speak with your family to assist you and give you some time away from caring for your children to allow you to heal mind and body. You need to take some time and rest where you will not need to be caring for your children and focus on caring for and healing yourself. The following information is given to patients seen in the emergency department who are being discharged to home. This information is to outline your options for follow-up care. We provide all patients seen in our emergency department with a follow-up referral. The need for follow-up, as well as the timing and circumstances, are variable depending upon the specifics of your emergency department visit. If you don't have a primary care physician on staff, we will provide you with a referral. We always advise you to contact your personal physician following an emergency department visit to inform them of the circumstance of the visit and for follow-up with them and/or the need for any referrals to a consulting specialist. The emergency department will also refer you to a specialist when appropriate. This referral assures that you have the opportunity for follow-up care with a specialist. All of these measure are taken in an effort to provide you with optimal care, which includes your follow-up. Under all circumstances we always encourage you to contact your private physician who remains a resource for coordinating your care. When calling for follow-up care, please make the office aware that this follow-up is from your recent emergency room visit. If for any reason you are refused follow-up, please contact the [facility] Emergency Department at and asked to speak to the emergency department charge nurse. [facility] [address] [place] [id number] [facility] [address] [place] [address] [facility] [address] [place] [address] [facility] [address] [place] [id number] Sepsis Event Note (ED) - Evaluation Sepsis Screening Result: No Definite Risk - Focused Exam Vital Signs: Vital Signs Temp Pulse Resp BP Pulse Ox 02/12/20 15:27 81 18 153/57 H 99 02/12/20 14:42 97.5 F 83 18 150/104 H 96 - My Orders Last 24 Hours: My Active Orders 02/12/20 14:54 Sodium Chloride 0.9% [Saline Flush] 10 ml FLUSH ASDIRECTED PRN Sodium Chloride 0.9% [Saline Flush] 2.5 ml FLUSH ASDIRECTED PRN Saline Lock Insert [OM.PC] Stat 02/12/20 15:45 miSOPROStoL [Cytotec] 200 mcg PO BID - Assessment/Plan Last 24 Hours: My Active Orders 02/12/20 14:54 Sodium Chloride 0.9% [Saline Flush] 10 ml FLUSH ASDIRECTED PRN Sodium Chloride 0.9% [Saline Flush] 2.5 ml FLUSH ASDIRECTED PRN Saline Lock Insert [OM.PC] Stat 02/12/20 15:45 miSOPROStoL [Cytotec] 200 mcg PO BID
--- NOTE | 2020-02-12 15:27 | US ---
Pelvic ultrasound: Multiple real-time images of the pelvis were obtained transvaginally and transabdominally. Uterus is anteverted. Echogenic material seen within the endometrial cavity with thickness of 2.4 cm. There is some Doppler blood flow within this echogenic area. Findings are felt compatible with retained products of conception. Small amount of fluid is seen within the endocervical canal. Ovaries are seen transabdominally and appear normal. Impression: 1. Echogenic material within the endometrial cavity with thickness of 2.4 cm showing some increased Doppler blood flow. Findings are felt compatible with retained products of conception. 2. Fluid within the endocervical canal presumably due to blood. Diagnostic code #3 Study was dictated in MDT
[2020-02-12] MEDS ORDERED: Misoprostol 200 MCG Tab PO SCH (15:45)
[2020-02-12 15:54] LABS: BLOOD UREA NITROGEN,BUN 5 mg/dL (7.0-18.0); CARBON DIOXIDE,CO2 26.6 mmol/L (21.0-32.0); CHLORIDE,CL 102 mmol/L (98-107); GLUCOSE RANDOM 83 mg/dL (74-106); POTASSIUM,K 3.5 mmol/L (3.5-5.1); SODIUM,NA 139 mmol/L (136-145)
== END 2020-02-12 17:32 | disposition home or self-care (01) ==
LOC: MW.ED 14:29
DX: O03.4 Incomplete spontaneous abortion without complication (principal); E66.9 Obesity, unspecified; Z98.890 Other specified postprocedural states
CPT/HCPCS: 76830; 80048; 84702; 85025; 96374; 96375; 99284; A9270; J1885; J2270; J7030